=== PATIENT | female | born 1950 | race Two or more races ===

== ENCOUNTER 2022-01-30 10:15 | Outpatient (CLI) | payer MEDICARE | END 2022-01-30 23:59 | disposition home or self-care (01) | LOC: CARD DIAG 10:15 | PROVIDERS: ATTEND Internal Medicine Cardiovascular Disease | DX: I08.1 Rheumatic disorders of both mitral and tricuspid valves (principal); I10 Essential (primary) hypertension | CPT/HCPCS: 93306 ==